=== PATIENT | female | born 1980 | race American Indian/Alaskan Native ===

== ENCOUNTER 2019-01-23 11:57 | Emergency (ER) | payer MEDICAID ==
--- NOTE | 2019-01-23 14:00 | Emergency Department Report ---
ED HPI - General Chief complaint: Vaginal Bleeding Stated complaint: 7WKS 3DAYS SPOTTING Time Seen by Provider: 01/23/19 13:49 Source: patient Mode of arrival: Ambulatory Limitations: No Limitations - History of Present Illness Initial comments: This is a 38-year-old female nontoxic, well nourished in appearance, no acute signs of distress presents to the ED with c/o of vaginal bleeding and pelvic cramping x1 day. Patient stated yesterday she noticed some spotting this morning x3 occasions and primarily only when she wipes after the restroom. Patient denies any abdominal pain. Patient denies any vaginal discharge or foul odor. Patient denies any nausea, vomiting, chest pain, shortness of breathe, fever, chills, headache, stiff neck, numbness, tingling. Patient denies any urinary symptoms. Patient denies any allergies or PMH. MD Complaint: vaginal bleeding -: This morning Location: pelvis Radiation: none Severity: mild Severity scale (0 -10): 3 Quality: cramping Consistency: constant Improves with: none Worsens with: none Associated symptoms: vaginal bleeding. denies: nausea/vomiting, vaginal discharge, abdominal pain, dysuria, headache, vision changes, malaise, dysparuenia, rash, seizure, shortness of breath, syncope, weakness Vaginal bleeding: light :: Yes Number of weeks : 7 Pre-ruthann care: none - Related Data Previous Rx's Medication Instructions Recorded Last Taken Type Acetaminophen [Acetaminophen TAB] 500 mg PO Q6HR PRN #20 tablet 01/23/19 Unknown Rx 21/Iron Fu/Folic Acid 1 each PO DAILY #30 tablet 01/23/19 Unknown Rx [ Complete Caplet] Allergies Allergy/AdvReac Type Severity Reaction Status Date / Time No Known Allergies Allergy Verified 09/23/15 16:15 ED Review of Systems ROS: Stated complaint: 7WKS 3DAYS SPOTTING Other details as noted in HPI Constitutional: denies: chills, fever Eyes: denies: eye pain, eye discharge, vision change ENT: denies: ear pain, throat pain Respiratory: denies: cough, shortness of breath, wheezing Cardiovascular: denies: chest pain, palpitations Endocrine: no symptoms reported Gastrointestinal: denies: abdominal pain, nausea, diarrhea Genitourinary: abnormal menses. denies: urgency, dysuria, discharge Musculoskeletal: denies: back pain, joint swelling, arthralgia Skin: denies: rash, lesions Neurological: denies: headache, weakness, paresthesias Psychiatric: denies: anxiety, depression Hematological/Lymphatic: denies: easy bleeding, easy bruising ED Past Medical Hx - Past Medical History Previous Medical History?: Yes Hx Hypertension: No Hx Congestive Heart Failure: No Hx Diabetes: Yes (GDM) Hx Deep Vein Thrombosis: No Hx Renal Disease: No Hx Sickle Cell Disease: No Hx Seizures: No Hx Asthma: Yes (uses albuterol inhaler) Hx COPD: No Hx HIV: No - Surgical History Past Surgical History?: Yes Hx Appendectomy: Yes Additional Surgical History: Surgery, tib/fib fx - Social History Smoking Status: Never Smoker Substance Use Type: None, Other - Medications Home Medications: Home Medications Medication Instructions Recorded Confirmed Last Taken Type Acetaminophen [Acetaminophen TAB] 500 mg PO Q6HR PRN #20 tablet 01/23/19 Unknown Rx 21/Iron Fu/Folic Acid 1 each PO DAILY #30 tablet 01/23/19 Unknown Rx [ Complete Caplet] ED Physical Exam - General Limitations: No Limitations General appearance: alert, in no apparent distress - Head Head exam: Present: atraumatic, normocephalic - Neck Neck exam: Present: normal inspection, full ROM. Absent: tenderness, meningismus, lymphadenopathy - Respiratory Respiratory exam: Present: normal lung sounds bilaterally. Absent: respiratory distress, wheezes, rales, rhonchi, stridor, chest wall tenderness, accessory muscle use, decreased breath sounds, prolonged expiratory - Cardiovascular Cardiovascular Exam: Present: regular rate, normal rhythm, normal heart sounds. Absent: bradycardia, tachycardia, irregular rhythm, systolic murmur, diastolic murmur, rubs, gallop - GI/Abdominal GI/Abdominal exam: Present: soft, normal bowel sounds. Absent: distended, tenderness, guarding, rebound, rigid, diminished bowel sounds - Extremities Exam Extremities exam: Present: normal inspection, full ROM - Back Exam Back exam: Present: normal inspection, full ROM. Absent: tenderness, CVA tenderness (R), CVA tenderness (L), muscle spasm, paraspinal tenderness, vertebral tenderness, rash noted - Neurological Exam Neurological exam: Present: alert, oriented X3 - Psychiatric Psychiatric exam: Present: normal affect, normal mood - Skin Skin exam: Present: warm, dry, intact, normal color. Absent: rash ED Course Vital Signs 01/23/19 12:05 Temperature 98.2 F Pulse Rate 82 Respiratory 16 Rate Blood Pressure 117/66 O2 Sat by Pulse 100 Oximetry - Reevaluation(s) Reevaluation #1: 01/23/19 14:11 Patient is speaking in full sentences with no signs of distress noted. ED Medical Decision Making - Lab Data Result diagrams: 01/23/19 14:27 - Medical Decision Making This is a 38-year-old female presents with threatened miscarriage. Patient is stable and was examined by me. Normal abdominal exam. US OB obtained and di ctated by the radiologist. Ua obtained. Quantative serum test obtained. Patient notified of the US report with no questions noted by the patient. Patient was instructed f/u with [facility] in 3-5 days. RH factor positive. Labs within normal limits. At time of discharge, the patient does not seem toxic or ill in appearance. No acute signs of distress noted. Patient agrees to discharge treatment plan of care. No further questions noted by the patient. Critical care attestation.: If time is entered above; I have spent that time in minutes in the direct care of this critically ill patient, excluding procedure time. ED Disposition Clinical Impression: Threatened miscarriage Disposition: DC-01 TO HOME OR SELFCARE Is pt being admited?: No Does the pt Need Aspirin: No Condition: Stable Instructions: Threatened Miscarriage (ED) Additional Instructions: Follow-up with a primary care doctor in 3-5 days or if symptoms worsen and continue return to emergency room as soon as possible. Prescriptions: Acetaminophen [Acetaminophen TAB] 500 mg PO Q6HR PRN #20 tablet PRN Reason: Pain, Moderate (4-6) 21/Iron Fu/Folic Acid [ Complete Caplet] 1 each PO DAILY #30 tablet Referrals: [facility] [Other] - 3-5 Days [facility] [Referring] - 3-5 Days KATERINA ADEN MD [Staff Physician] - 3-5 Days [facility] [Provider Group] - 3-5 Days Forms: Work/School Release Form(ED)
[2019-01-23 15:08] LABS: Hematocrit 40.8 % (30.3-42.9); Hemoglobin 13.2 gm/dl (10.1-14.3); Mean Corpuscular HGB Conc 32 % (30-34); Mean Corpuscular Volume 86 fl (79-97); Platelet Count 184 K/mm3 (140-440); Red Blood Count 4.74 M/mm3 (3.65-5.03); Red Cell Distribution Width 13.9 % (13.2-15.2)
[2019-01-23 15:46] LABS: Bilirubin,Urine NEG (Negative); Blood,Urine NEG (Negative); Color,Urine Yellow (Yellow); Mucus,Urine FEW /HPF; Protein,Urine <15 mg/dL mg/dL (Negative); Urobilinogen,Urine < 2.0 mg/dL (<2.0); WBC,Urine < 1.0 /HPF (0.0-6.0)
[2019-01-23 15:58] LABS: Band Neutrophils # (Manual) 0.1 K/mm3; Basophils % (Manual) 0 % (0.0-1.8); Eosinophils % (Manual) 0 % (0.0-4.3); Total Cells Counted 100
--- NOTE | 2019-01-23 17:22 | Ultrasound Report ---
PROCEDURE: US OB TRANSVAGINAL HISTORY: vaginal bleeding FINDINGS: Real-time ultrasound of the pelvis was performed by transabdominal and endovaginal techniqu e. There is an intrauterine gestation with average ultrasound age of 5 weeks and 5 days, with card iac activity at 90 bpm. The right ovary measures 2.7 x 1.3 x 2.1 cm and contains an echogenic region, likely hemorrhagic cyst or collapsed cyst, measuring 1.4 x 1.0 x 1.4 cm. The left ovary measures 2.7 x 2.0 x 2.5 cm and contains a echogenic lesion, likely luteal cyst, measuring 1.7 x 1.4 x 2.0 cm. There is physiologic simple appearing free fluid in the cul-de-sac. IMPRESSION: Live intrauterine gestation at 5 weeks and 5 days gestational age This document is electronically signed by César Richter MD., January 23 2019 05:20:12 PM ET
--- NOTE | 2019-01-23 17:22 | Ultrasound Report ---
PROCEDURE: US OB <= 14 WEEKS FETUS HISTORY: vaginal bleeding FINDINGS: Real-time ultrasound of the pelvis was performed by transabdominal and endovaginal techniqu e. There is an intrauterine gestation with average ultrasound age of 5 weeks and 5 days, with card iac activity at 90 bpm. The right ovary measures 2.7 x 1.3 x 2.1 cm and contains an echogenic region, likely hemorrhagic cyst or collapsed cyst, measuring 1.4 x 1.0 x 1.4 cm. The left ovary measures 2.7 x 2.0 x 2.5 cm and contains a echogenic lesion, likely luteal cyst, measuring 1.7 x 1.4 x 2.0 cm. There is physiologic simple appearing free fluid in the cul-de-sac. IMPRESSION: Live intrauterine gestation at 5 weeks and 5 days gestational age This document is electronically signed by César Richter MD., January 23 2019 05:20:28 PM ET
[2019-01-23 18:13] VITALS: BP 106/62
== END 2019-01-23 18:22 | disposition home or self-care (01) ==
LOC: ED 11:57
DX: O20.0 Threatened abortion (principal); O99.511 Diseases of the respiratory system complicating pregnancy, first trimester; J45.909 Unspecified asthma, uncomplicated; Z90.49 Acquired absence of other specified parts of digestive tract; Z3A.01 Less than 8 weeks gestation of pregnancy
CPT/HCPCS: 36415; 76801; 76817; 81001; 84702; 85007; 85025; 86850; 86900; 86901; 99284

== ENCOUNTER 2019-09-14 21:38 | Inpatient (IN) | payer MEDICAID ==
--- NOTE | 2019-09-14 22:37 | Emergency Department Report ---
ED Chest Pain HPI - General Chief Complaint: Chest Pain Stated Complaint: CHEST PAIN Time Seen by Provider: 09/14/19 22:18 Source: EMS Mode of arrival: Stretcher Limitations: No Limitations - History of Present Illness Initial Comments: 38-year-old female with past medical history of asthma and gestational diabetes presents to the hospital complains of chest pain and unintentional medication overdose. Patient states she's had sternal sharp chest pain that is intermittent since this a.m. Pain worsened movement and palpation. She denies shortness of breath, cough, fever, calf tenderness, leg edema, history of PE/DVT, recent travel, recent surgery, or control use. Also denies cardiac risk factors include hypertension, current diabetes, family history of CAD, or tobacco use. Between 5 PM and 6:45 PM patient to 6 Tylenol PM tablets to help with the pain. Patient is tachycardic. She has had 1-2 episodes of vomiting. She denies continued nausea. She is drowsy at times it causes her sister her cousin but is otherwise oriented 3. 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 between 2pm and 6pm Severity scale (0 -10): 5 - Related Data Home Medications Medication Instructions Recorded Confirmed Last Taken No Known Home Medications [No 09/15/19 09/15/19 Unknown Reported Home Medications] Allergies Allergy/AdvReac Type Severity Reaction Status Date / Time No Known Allergies Allergy Verified 09/23/15 16:15 Heart Score - HEART Score History: Slightly suspicious EKG: Normal Age: < 45 Risk factors: No known risk factors Troponin: < normal limit HEART Score: 0 ED Review of Systems ROS: Stated complaint: CHEST PAIN Other details as noted in HPI Comment: All other systems reviewed and negative ED Past Medical Hx - Past Medical History Previous Medical History?: Yes Hx Hypertension: No Hx Congestive Heart Failure: No Hx Diabetes: Yes (GDM) Hx Deep Vein Thrombosis: No Hx Renal Disease: No Hx Sickle Cell Disease: No Hx Seizures: No Hx Asthma: Yes (uses albuterol inhaler) Hx COPD: No Hx HIV: No - Surgical History Hx Appendectomy: Yes Additional Surgical History: Surgery, tib/fib fx - Social History Smoking Status: Never Smoker Substance Use Type: Alcohol - Medications Home Medications: Home Medications Medication Instructions Recorded Confirmed Last Taken Type No Known Home Medications [No 09/15/19 09/15/19 Unknown History Reported Home Medications] ED Physical Exam - General Limitations: No Limitations - Other Other exam information: General: No acute distress Head: Atraumatic Eyes: normal appearance ENT: Moist mucous membranes Neck: Normal appearance, no midline tenderness Chest: Clear to auscultation bilaterally, reproducible lower sternal chest tenderness CV: Regular rate and rhythm Abdomen: Soft, normal bowel sounds, nontender, nondistended, no rebound or guarding Back: Normal inspection Extremity: Normal inspection infection, full range of motion Neuro: drowsy O x 3, no facial asymmetry, speech clear, no gross motor sensory deficit Psych: Appropriate behavior Skin: No rash ED Course Vital Signs 09/14/19 09/14/19 09/14/19 22:20 22:30 23:00 Temperature 98.3 F Pulse Rate 91 H 89 84 Respiratory 19 11 L 18 Rate Blood Pressure 134/72 128/75 126/70 Blood Pressure 134/72 [Left] O2 Sat by Pulse 100 100 100 Oximetry 09/14/19 09/15/19 09/15/19 23:30 00:00 00:11 Temperature Pulse Rate 82 88 86 Respiratory 19 26 H 23 Rate Blood Pressure 117/72 136/74 136/74 Blood Pressure [Left] O2 Sat by Pulse 100 100 98 Oximetry 09/15/19 00:30 Temperature Pulse Rate 90 Respiratory 22 Rate Blood Pressure 125/70 Blood Pressure [Left] O2 Sat by Pulse 100 Oximetry - Consultations Consultation #1: 09/14/19 23:28 recontacted poison control ([place]) regarding elevated Tylenol level That amount of medication ingested and time changes with each questioning so exact amount and time of ingestion is unknown. risk of Benadryl OD: torsades, ventricular dysrhythmias with qtc > 500 recommended to optimize mag, k, ca with tylenol OD liver dysfunction takes 24 hours due unreliable ingestion time and amount NAC IV is recommended rec 1hr, 4hr, and 16 hr NAC IV protocol 2 hours till completion of 16 hour infusion rec redrawal of tylenol (undetectable), LFTs should be less than 100, and INR should left the 1.5. If any of the repeat labs values are abnormal then the NAC drip will need to be continued for another 16 hour. JEAN MARIE score - Jean Marie Score Age > 65: (0) No Aspirin use within the Past 7 Days: (0) No 3 or more CAD Risk Factors: (0) No 2 or more Angina events in past 24 hrs: (0) No Known CAD with more than 50% Stenosis: (0) No Elevated Cardiac Markers: (0) No ST Deviation Greater than 0.5mm: (0) No JEAN MARIE Score: 0 ED Medical Decision Making - Lab Data Result diagrams: 09/14/19 22:38 09/14/19 22:38 Lab Results 09/14/19 09/14/19 09/14/19 Range/Units 22:38 22:38 22:38 WBC 6.5 (4.5-11.0) K/mm3 RBC 4.27 (3.65-5.03) M/mm3 Hgb 11.9 (10.1-14.3) gm/dl Hct 36.6 (30.3-42.9) % MCV 86 (79-97) fl MCH 28 (28-32) pg MCHC 33 (30-34) % RDW 13.8 (13.2-15.2) % Plt Count 187 (140-440) K/mm3 Lymph % (Auto) 25.5 (13.4-35.0) % Turner % (Auto) 9.8 H (0.0-7.3) % Eos % (Auto) 0.2 (0.0-4.3) % Baso % (Auto) 0.3 (0.0-1.8) % Lymph # 1.7 (1.2-5.4) K/mm3 Turner # 0.6 (0.0-0.8) K/mm3 Eos # 0.0 (0.0-0.4) K/mm3 Baso # 0.0 (0.0-0.1) K/mm3 Seg Neutrophils % 64.2 (40.0-70.0) % Seg Neutrophils # 4.2 (1.8-7.7) K/mm3 PT 14.3 (12.2-14.9) Sec. INR 1.10 (0.87-1.13) APTT 27.3 (24.2-36.6) Sec. Sodium 137 (137-145) mmol/L Potassium 3.4 L (3.6-5.0) mmol/L Chloride 103.1 (98-107) mmol/L Carbon Dioxide 21 L (22-30) mmol/L Anion Gap 16 mmol/L BUN 9 (7-17) mg/dL Creatinine 0.5 L (0.7-1.2) mg/dL Estimated GFR > 60 ml/min BUN/Creatinine Ratio 18 % Glucose 177 H (65-100) mg/dL Calcium 9.2 (8.4-10.2) mg/dL Magnesium (1.7-2.3) mg/dL Total Bilirubin 0.50 (0.1-1.2) mg/dL AST 12 (5-40) units/L ALT 10 (7-56) units/L Alkaline Phosphatase 72 (35-129) units/L Troponin T < 0.010 (0.00-0.029) ng/mL Total Protein 7.3 (6.3-8.2) g/dL Albumin 4.0 (3.9-5) g/dL Albumin/Globulin Ratio 1.2 % HCG, Qual (Negative) Salicylates (2.8-20.0) mg/dL Acetaminophen (10.0-30.0) ug/mL Plasma/Serum Alcohol (0-0.07) % 09/14/19 09/14/19 09/14/19 Range/Units 22:38 22:38 22:38 WBC (4.5-11.0) K/mm3 RBC (3.65-5.03) M/mm3 Hgb (10.1-14.3) gm/dl Hct (30.3-42.9) % MCV (79-97) fl MCH (28-32) pg MCHC (30-34) % RDW (13.2-15.2) % Plt Count (140-440) K/mm3 Lymph % (Auto) (13.4-35.0) % Turner % (Auto) (0.0-7.3) % Eos % (Auto) (0.0-4.3) % Baso % (Auto) (0.0-1.8) % Lymph # (1.2-5.4) K/mm3 Turner # (0.0-0.8) K/mm3 Eos # (0.0-0.4) K/mm3 Baso # (0.0-0.1) K/mm3 Seg Neutrophils % (40.0-70.0) % Seg Neutrophils # (1.8-7.7) K/mm3 PT (12.2-14.9) Sec. INR (0.87-1.13) APTT (24.2-36.6) Sec. Sodium (137-145) mmol/L Potassium (3.6-5.0) mmol/L Chloride (98-107) mmol/L Carbon Dioxide (22-30) mmol/L Anion Gap mmol/L BUN (7-17) mg/dL Creatinine (0.7-1.2) mg/dL Estimated GFR ml/min BUN/Creatinine Ratio % Glucose (65-100) mg/dL Calcium (8.4-10.2) mg/dL Magnesium (1.7-2.3) mg/dL Total Bilirubin (0.1-1.2) mg/dL AST (5-40) units/L ALT (7-56) units/L Alkaline Phosphatase (35-129) units/L Troponin T (0.00-0.029) ng/mL Total Protein (6.3-8.2) g/dL Albumin (3.9-5) g/dL Albumin/Globulin Ratio % HCG, Qual (Negative) Salicylates < 0.3 L (2.8-20.0) mg/dL Acetaminophen 108.5 H (10.0-30.0) ug/mL Plasma/Serum Alcohol < 0.01 (0-0.07) % 09/14/19 09/14/19 Range/Units 22:38 Unknown WBC (4.5-11.0) K/mm3 RBC (3.65-5.03) M/mm3 Hgb (10.1-14.3) gm/dl Hct (30.3-42.9) % MCV (79-97) fl MCH (28-32) pg MCHC (30-34) % RDW (13.2-15.2) % Plt Count (140-440) K/mm3 Lymph % (Auto) (13.4-35.0) % Turner % (Auto) (0.0-7.3) % Eos % (Auto) (0.0-4.3) % Baso % (Auto) (0.0-1.8) % Lymph # (1.2-5.4) K/mm3 Turner # (0.0-0.8) K/mm3 Eos # (0.0-0.4) K/mm3 Baso # (0.0-0.1) K/mm3 Seg Neutrophils % (40.0-70.0) % Seg Neutrophils # (1.8-7.7) K/mm3 PT (12.2-14.9) Sec. INR (0.87-1.13) APTT (24.2-36.6) Sec. Sodium (137-145) mmol/L Potassium (3.6-5.0) mmol/L Chloride (98-107) mmol/L Carbon Dioxide (22-30) mmol/L Anion Gap mmol/L BUN (7-17) mg/dL Creatinine (0.7-1.2) mg/dL Estimated GFR ml/min BUN/Creatinine Ratio % Glucose (65-100) mg/dL Calcium (8.4-10.2) mg/dL Magnesium 1.60 L (1.7-2.3) mg/dL Total Bilirubin (0.1-1.2) mg/dL AST (5-40) units/L ALT (7-56) units/L Alkaline Phosphatase (35-129) units/L Troponin T (0.00-0.029) ng/mL Total Protein (6.3-8.2) g/dL Albumin (3.9-5) g/dL Albumin/Globulin Ratio % HCG, Qual Negative (Negative) Salicylates (2.8-20.0) mg/dL Acetaminophen (10.0-30.0) ug/mL Plasma/Serum Alcohol (0-0.07) % - EKG Data -: EKG Interpreted by [facility] EKG shows normal: sinus rhythm, intervals (qtc 508), ST-T waves (no stemi) Rate: tachycardia (105) - EKG Data 09/15/19 01:07 repeat ekg shows improved tachycardia and qtc - Radiology Data Radiology results: report reviewed (cxr: naf) - Medical Decision Making pt here in the ED status post unintentional overdose due to continued chest miguel n. Sternal pain is reproducible on exam without cardiac risk factors an EKG does not show ischemic findings. Patient required admission to the hospital for in a infusion due to possible Tylenol overdose. IV potassium ordered for hypokalemia and IV mag for Hypomagnesemia. Hospitalist informed for admission - Differential Diagnosis overdose intentional vs unintentional, mi, costochondritis Critical Care Time: No Critical care attestation.: If time is entered above; I have spent that time in minutes in the direct care of this critically ill patient, excluding procedure time. ED Disposition Clinical Impression: Costochondral chest pain, Overdose by acetaminophen, Anticholinergic drug overdose, Hypokalemia, Hypomagnesemia Disposition: OP ADMIT IP TO THIS HOSP Is pt being admited?: Yes Condition: Stable Time of Disposition: 23:53 (Dr Long/hosp)
[2019-09-14 22:52] LABS: Basophils % (Auto) 0.3 % (0.0-1.8); Eosinophils % (Auto) 0.2 % (0.0-4.3); Hematocrit 36.6 % (30.3-42.9); Hemoglobin 11.9 gm/dl (10.1-14.3); Lymphocytes # (Auto) 1.7 K/mm3 (1.2-5.4); Lymphocytes % (Auto) 25.5 % (13.4-35.0); Mean Corpuscular HGB Conc 33 % (30-34); Mean Corpuscular Volume 86 fl (79-97); Monocytes # (Auto) 0.6 K/mm3 (0.0-0.8); Monocytes % (Auto) 9.8 % (0.0-7.3); Platelet Count 187 K/mm3 (140-440); Red Blood Count 4.27 M/mm3 (3.65-5.03); Red Cell Distribution Width 13.8 % (13.2-15.2)
[2019-09-14 23:04] LABS: INR 1.1 (0.87-1.13)
[2019-09-14 23:06] LABS: Partial Thromboplastin Time 27.3 Sec. (24.2-36.6)
[2019-09-14 23:13] LABS: Alanine Aminotransferase 10 units/L (7-56); BUN/Creatinine Ratio 18; Blood Urea Nitrogen 9 mg/dL (7-17); Calcium 9.2 mg/dL (8.4-10.2); Hemolysis Index 7
--- NOTE | 2019-09-14 23:42 | XRay Report ---
CHEST 1 VIEW INDICATION / CLINICAL INFORMATION: Chest Pain. COMPARISON: 07/16/2010 FINDINGS: SUPPORT DEVICES: None. HEART / MEDIASTINUM: No significant abnormality. LUNGS / PLEURA: No significant pulmonary or pleural abnormality. No pneumothorax. ADDITIONAL FINDINGS: No significant additional findings. IMPRESSION: 1. No significant change Signer Name: Navdeep Bay MD Signed: 09/14/2019 11:38 PM Workstation Name: [id number]
--- NOTE | 2019-09-14 23:55 | History and Physical Report ---
History of Present Illness History of present illness: 38 -year-old woman with history of asthma comes emergency room for evaluation. Patient said today she was having pain in the epigastric area which she describes a sharp pain, intermittent over 30 minutes, intensity level X, no radiation, cannot identify exacerbating factors. She stated that she took a total of 10 pills of Tylenol for her pain. Her cousin saw her and said that she looked out-of-it and brought her to the emergency room for evaluation. Admits to nausea vomiting 1, no shortness of breath, diaphoresis, palpitation Review Of Systems: Constitutional: no weight loss, fever, chills Ears, eyes, nose, mouth and throat: no nasal congestion, no nasal discharge, no sinus pressure, blurry vision, diplopia Neck: No neck pain or rigidity. Cardiovascular: No palpitations, chest pain Respiratory: No shortness of breath, cough Gastrointestinal: No hematochezia, abdominal pain Genitourinary : no dysuria, frequency Musculoskeletal: no muscle ache , joint pain Integumentary: no rash, no pruritis Neurological: no parathesias, focal weakness Endocrine: no cold or heat intolerance, no polyuria or polydipsia Hematologic/Lymphatic: no easy bruising, no easy bleeding, no gland swelling Allergic/Immunologic: no urticaria, no angioedema. PAST MEDICAL HISTORY: asthma PAST SURGICAL HISTORY:None SOCIAL HISTORY: Denies alcohol, tobacco, drugs FAMILY HISTORY: Hypertension Medications and Allergies Allergies Allergy/AdvReac Type Severity Reaction Status Date / Time No Known Allergies Allergy Verified 09/23/15 16:15 Home Medications Medication Instructions Recorded Confirmed Last Taken Type No Known Home Medications [No 09/15/19 09/15/19 Unknown History Reported Home Medications] Active Meds: Active Medications Potassium Chloride (Kcl 10meq/100ml) 10 meq in 100 mls @ 100 mls/hr IV Q1H HOLLAND Stop: 09/15/19 01:44 Exam - Physical Exam Narrative exam: Gen. appearance: Patient lying in bed, no apparent distress HEENT: Normocephalic, atraumatic, pupils equally round and reactive to light, extraocular movement intact, and no sclericterus,. No JVD or thyromegaly or nodule,neck supple, no carotid bruit ,mucous membranes moist, no exudate or erythema Heart: S1, S2, regular rate and rhythm Lungs: Clear bilaterally, breathing comfortable Abdomen: Positive bowel sounds, nontender, nondistended, no organomegaly Extremity: no edema, cyanosis, clubbing Skin: No rash, nodules, warm, dry Neuro: speech is fluent, moves extremities, sensory intact - Constitutional Vitals: Temp Pulse Resp BP Pulse Ox 98.3 F 91 H 19 134/72 100 09/14/19 22:20 09/14/19 22:20 09/14/19 22:20 09/14/19 22:20 09/14/19 22:20 Results - Labs CBC & Chem 7: 09/14/19 22:38 09/14/19 22:38 Labs: Abnormal lab results 09/14/19 09/14/19 09/14/19 Range/Units 22:38 22:38 22:38 Weakley % (Auto) 9.8 H (0.0-7.3) % Potassium 3.4 L (3.6-5.0) mmol/L Carbon Dioxide 21 L (22-30) mmol/L Creatinine 0.5 L (0.7-1.2) mg/dL Glucose 177 H (65-100) mg/dL Magnesium (1.7-2.3) mg/dL Salicylates < 0.3 L (2.8-20.0) mg/dL Acetaminophen (10.0-30.0) ug/mL 09/14/19 09/14/19 Range/Units 22:38 Unknown Weakley % (Auto) (0.0-7.3) % Potassium (3.6-5.0) mmol/L Carbon Dioxide (22-30) mmol/L Creatinine (0.7-1.2) mg/dL Glucose (65-100) mg/dL Magnesium 1.60 L (1.7-2.3) mg/dL Salicylates (2.8-20.0) mg/dL Acetaminophen 108.5 H (10.0-30.0) ug/mL - Imaging and Cardiology Chest x-ray: report reviewed Assessment and Plan Assessment Unintentional Tylenol overdose Continue Mucomyst, IV fluids Check serial LFTs, PT/INR Follow-up poison control recommendations outlining the ER physician's note Consult critical care Chest pain Check cardiac enzymes, d-dimer Addendum D-dimer elevated, check CT chest
[2019-09-14] MEDS ORDERED: MAGNESIUM SULFATE 2 GM/50 ML BAG IV ONE (23:56)
[2019-09-15] MEDS ORDERED: ACETAMINOPHEN 325 MG TAB PO PRN (00:43)
[2019-09-15] MEDS ORDERED: ONDANSETRON 4 MG/2 ML INJ IV PRN (00:43)
[2019-09-15] MEDS: POTASSIUM CHLORIDE 10 MEQ 10 MEQ/100 ML BAG IV SCH ×2 (00:45→02:29)
[2019-09-15] MEDS ORDERED: DEXTROSE 5% IV ONE ×3 (01:00→06:00)
[2019-09-15] MEDS ORDERED: WATER IV ONE ×3 (01:00→06:00)
[2019-09-15] MEDS ORDERED: ACETADOTE IV ONE ×3 (01:00→06:00)
[2019-09-15 01:22] LABS: INR 1.05 (0.87-1.13)
[2019-09-15 01:23] LABS: Partial Thromboplastin Time 27.9 Sec. (24.2-36.6)
[2019-09-15 01:35] LABS: Creatine Kinase MB < 1.0 ng/mL (0.0-4.0)
[2019-09-15 01:36] LABS: Alanine Aminotransferase 11 units/L (7-56); Albumin 4.5 g/dL (3.9-5)
[2019-09-15 01:39] LABS: Bilirubin,Direct < 0.2 mg/dL (0-0.2)
[2019-09-15] MEDS: SODIUM CHLORIDE 0.9% 1000 ML 1,000 ML IV SCH ×2 (02:05→10:30)
[2019-09-15 04:52] LABS: Amphetamine Screen,Urine PRESUMPTIVE NEGATIVE; Benzodiazepines Screen,Urine PRESUMPTIVE NEGATIVE; Cannabinoid Screen,Urine PRESUMPTIVE NEGATIVE; Cocaine Screen,Urine PRESUMPTIVE NEGATIVE; Methadone Screen,Urine PRESUMPTIVE NEGATIVE; Opiate Screen,Urine PRESUMPTIVE NEGATIVE
[2019-09-15 05:35] LABS: Basophils % (Auto) 0.1 % (0.0-1.8); Eosinophils % (Auto) 0.1 % (0.0-4.3); Hematocrit 36.9 % (30.3-42.9); Hemoglobin 12.2 gm/dl (10.1-14.3); Lymphocytes # (Auto) 1.1 K/mm3 (1.2-5.4); Lymphocytes % (Auto) 20.4 % (13.4-35.0); Mean Corpuscular HGB Conc 33 % (30-34); Mean Corpuscular Volume 86 fl (79-97); Monocytes # (Auto) 0.7 K/mm3 (0.0-0.8); Monocytes % (Auto) 13.5 % (0.0-7.3); Platelet Count 174 K/mm3 (140-440); Red Cell Distribution Width 13.8 % (13.2-15.2)
[2019-09-15 05:43] LABS: INR 1.15 (0.87-1.13)
[2019-09-15 05:44] LABS: Partial Thromboplastin Time 29.5 Sec. (24.2-36.6)
[2019-09-15 06:00] LABS: BUN/Creatinine Ratio 12; Blood Urea Nitrogen 7 mg/dL (7-17); Calcium 8.4 mg/dL (8.4-10.2); Hemolysis Index 5
[2019-09-15 06:02] LABS: Alanine Aminotransferase 10 units/L (7-56); Albumin 4.1 g/dL (3.9-5)
[2019-09-15 06:05] LABS: Bilirubin,Direct < 0.2 mg/dL (0-0.2)
--- NOTE | 2019-09-15 07:09 | Cat Scan Report ---
CTA chest with contrast INDICATION : S.O.B., POSSIBLE P.E.. TECHNIQUE: Axial imaging performed through the chest, with contrast bolus timing set to maximize opa cification of the pulmonary arteries. 3-plane MIP reformatted images were obtained. All CT scans at this location are performed using CT dose reduction for ALARA by means of automated exposure control. 100 mL of intravenous contrast administered. COMPARISON: None FINDINGS: Bolus: Contrast bolus timing is adequate. PTE: No filling defect is present to suggest PTE. Mediastinum: Heart and great vessels appear normal. No pathologic mediastinal adenopathy. Lungs: Lungs are clear. Upper abdomen: Limited imaging of the upper abdomen shows nothing acute. Bones: Degenerative changes in the spine with nothing acute. IMPRESSION: Negative for PTE. Clear lungs. Signer Name: Lawson Cordero MD Signed: 09/15/2019 7:04 AM Workstation Name: [id number]
[2019-09-15 08:02] LABS: INR 1.14 (0.87-1.13); Partial Thromboplastin Time 29.1 Sec. (24.2-36.6)
[2019-09-15 08:10] LABS: Alanine Aminotransferase 10 units/L (7-56)
[2019-09-15 08:30] LABS: Bilirubin,Direct < 0.2 mg/dL (0-0.2); Creatine Kinase MB < 1.0 ng/mL (0.0-4.0)
[2019-09-15] MEDS ORDERED: ENOXAPARIN 40 MG/0.4 ML INJ SUB-Q SCH (10:00)
[2019-09-15] MEDS ORDERED: NITROGLYCERIN 0.4 MG TAB SUBL SL PRN (10:35)
[2019-09-15] MEDS ORDERED: DEXTROSE 50% IN WATER (25GM) 50 ML SYRINGE IV PRN (10:37)
[2019-09-15] MEDS ORDERED: PANTOPRAZOLE 40 MG INJ IV SCH (11:00)
[2019-09-15] MEDS ORDERED: ASPIRIN 81 MG TAB CHEW PO SCH (11:00)
--- NOTE | 2019-09-15 11:15 | Consultation ---
History of Present Illness - Reason for Consult Consult date: 09/15/19 Tylenol Toxicity Requesting physician: JAIRO LEE - History of Present Illness 38 y/o female who was having chest and epigastric pain, took between 6-8 Tylenol PM's. Came to the Ed and was found to be somewhat lethargic and Tachycardic. This am awake and alert. Tachycardia has resolved. She was given NAC therapy. Past History Past Medical History: other (asthma and gestational diabetes) Past Surgical History: No surgical history Social history: no significant social history Medications and Allergies Allergies Allergy/AdvReac Type Severity Reaction Status Date / Time No Known Allergies Allergy Verified 09/23/15 16:15 Home Medications Medication Instructions Recorded Confirmed Last Taken Type No Known Home Medications [No 09/15/19 09/15/19 Unknown History Reported Home Medications] Active Meds: Active Medications Aspirin (Baby Aspirin) 81 mg PO QDAY [facility] Dextrose (D50w (25gm) Syringe) 50 ml IV Q30MIN PRN; Protocol PRN Reason: Hypoglycemia Enoxaparin Sodium (Enoxaparin) 40 mg SUB-Q QDAY [facility] Acetylcysteine 5,400 mg/ (Dextrose) 1,027 mls @ 64.188 mls/hr IV DIRECT ONE Stop: 09/15/19 21:59 Sodium Chloride (Nacl 0.9% 1000 Ml) 1,000 mls @ 125 mls/hr IV DIRECT [facility] Last Admin: 09/15/19 10:30 Dose: 125 mls/hr Documented by: Insulin Human Lispro (Humalog) 0 unit SUB-Q ACHS [facility]; Protocol Nitroglycerin (Nitrostat) 0.4 mg SL .Q5MIN PRN PRN Reason: Chest Pain Ondansetron HCl (Zofran) 4 mg IV Q8H PRN PRN Reason: Nausea And Vomiting Last Admin: 09/15/19 02:48 Dose: 4 mg Documented by: Pantoprazole Sodium (Protonix) 40 mg IV BID [facility] Pravastatin Sodium (Pravachol) 80 mg PO QHS [facility] Sodium Chloride (Sodium Chloride Flush Syringe 10 Ml) 10 ml IV BID [facility] Sodium Chloride (Sodium Chloride Flush Syringe 10 Ml) 10 ml IV PRN PRN PRN Reason: LINE FLUSH Review of Systems All systems: negative Exam - Constitutional Vitals: Temp Pulse Resp BP Pulse Ox 98.2 F 81 21 120/67 99 09/15/19 08:04 09/15/19 04:00 09/15/19 01:21 09/15/19 01:21 09/15/19 08:08 General appearance: Present: no acute distress, well-nourished - EENT Eyes: Present: PERRL, EOM intact ENT: hearing intact, clear oral mucosa, dentition normal - Neck Neck: Present: supple, normal ROM - Respiratory Respiratory effort: normal Respiratory: bilateral: CTA - Cardiovascular Rhythm: regular Heart Sounds: Present: S1 & S2 - Extremities Extremities: no ischemia, No edema, normal temperature, normal color - Abdominal General gastrointestinal: Present: soft, non-tender, normal bowel sounds Female genitourinary: Present: deferred - Rectal Rectal Exam: deferred - Integumentary Integumentary: Present: clear, warm, dry Results - Labs CBC & Chem 7: 09/15/19 04:57 09/15/19 04:57 Labs: Abnormal lab results 09/14/19 09/14/19 09/14/19 Range/Units 22:38 22:38 22:38 [place] % (Auto) 9.8 H (0.0-7.3) % Lymph # (1.2-5.4) K/mm3 INR (0.87-1.13) D-Dimer (0-234) ng/mlDDU Sodium (137-145) mmol/L Potassium 3.4 L (3.6-5.0) mmol/L Carbon Dioxide 21 L (22-30) mmol/L Creatinine 0.5 L (0.7-1.2) mg/dL Glucose 177 H (65-100) mg/dL Phosphorus (2.5-4.5) mg/dL Magnesium (1.7-2.3) mg/dL Salicylates < 0.3 L (2.8-20.0) mg/dL Acetaminophen (10.0-30.0) ug/mL 09/14/19 09/14/19 09/15/19 Range/Units 22:38 Unknown 00:54 [place] % (Auto) (0.0-7.3) % Lymph # (1.2-5.4) K/mm3 INR (0.87-1.13) D-Dimer 817.67 H (0-234) ng/mlDDU Sodium (137-145) mmol/L Potassium (3.6-5.0) mmol/L Carbon Dioxide (22-30) mmol/L Creatinine (0.7-1.2) mg/dL Glucose (65-100) mg/dL Phosphorus (2.5-4.5) mg/dL Magnesium 1.60 L (1.7-2.3) mg/dL Salicylates (2.8-20.0) mg/dL Acetaminophen 108.5 H (10.0-30.0) ug/mL 09/15/19 09/15/19 09/15/19 Range/Units 00:54 04:57 04:57 [place] % (Auto) 13.5 H (0.0-7.3) % Lymph # 1.1 L (1.2-5.4) K/mm3 INR (0.87-1.13) D-Dimer (0-234) ng/mlDDU Sodium 136 L (137-145) mmol/L Potassium (3.6-5.0) mmol/L Carbon Dioxide 18 L (22-30) mmol/L Creatinine 0.6 L (0.7-1.2) mg/dL Glucose 235 H (65-100) mg/dL Phosphorus 2.10 L (2.5-4.5) mg/dL Magnesium (1.7-2.3) mg/dL Salicylates (2.8-20.0) mg/dL Acetaminophen 71.8 H (10.0-30.0) ug/mL 09/15/19 09/15/19 09/15/19 Range/Units 04:57 07:40 07:40 [place] % (Auto) (0.0-7.3) % Lymph # (1.2-5.4) K/mm3 INR 1.15 H 1.14 H (0.87-1.13) D-Dimer (0-234) ng/mlDDU Sodium (137-145) mmol/L Potassium (3.6-5.0) mmol/L Carbon Dioxide (22-30) mmol/L Creatinine (0.7-1.2) mg/dL Glucose (65-100) mg/dL Phosphorus (2.5-4.5) mg/dL Magnesium (1.7-2.3) mg/dL Salicylates (2.8-20.0) mg/dL Acetaminophen 8.1 L (10.0-30.0) ug/mL - Imaging and Cardiology Chest x-ray: image reviewed CT scan - chest: image reviewed Assessment and Plan 38 y/o female with altered mental state and unintentional overdose of tylenol secondary to pain From a critical care standpoint stable. Has finished NAC therapy. Please transfer from ICU. Will sign off.
[2019-09-15] MEDS ORDERED: INSULIN LISPRO 100 UNIT/ML SUB-Q SCH (11:30)
[2019-09-15 12:39] VITALS: BP 132/74
--- NOTE | 2019-09-15 13:39 | Vascular Lab Report ---
DUPLEX DOPPLER LOWER EXTREMITY VEINS, BILATERAL INDICATION: dvt. TECHNIQUE: Duplex doppler imaging was performed through the veins of both lower extremities using venous denton fernando and other maneuvers. COMPARISON: None available. FINDINGS: Right Common femoral vein: Negative. Right Superficial femoral vein: Negative. Right Popliteal vein: Negative. Right Calf veins: Negative. Left Common femoral vein: Negative. Left Superficial femoral vein: Negative. Left Popliteal vein: Negative. Left Calf veins: Negative. Additional findings: None. IMPRESSION: Negative for DVT. Signer Name: Trey Peres MD Signed: 09/15/2019 1:34 PM Workstation Name: [id number]
--- NOTE | 2019-09-15 16:13 | Consultation ---
History of Present Illness Consult date: 09/15/19 Consult reason: chest pain History of present illness: 38-year old woman who is admitted with unintentional Tylenol overdose. Patient reports excessively taking tylenol for chest pain. Pain is located in the epigastric area and is reproducible with palpation. Cardiac isoenzymes are normal. Her ECG is benign, sinus rhythm. Chest CTA is negative for PE. Cardiac consultation has been requested. Past History Past Medical History: other (asthma and gestational diabetes) Past Surgical History: No surgical history Social history: no significant social history Medications and Allergies Allergies Allergy/AdvReac Type Severity Reaction Status Date / Time No Known Allergies Allergy Verified 09/23/15 16:15 Home Medications Medication Instructions Recorded Confirmed Last Taken Type No Known Home Medications [No 09/15/19 09/15/19 Unknown History Reported Home Medications] Active Meds: Active Medications Aspirin (Baby Aspirin) 81 mg PO QDAY [facility] Last Admin: 09/15/19 13:32 Dose: 81 mg Documented by: Dextrose (D50w (25gm) Syringe) 50 ml IV Q30MIN PRN; Protocol PRN Reason: Hypoglycemia Enoxaparin Sodium (Enoxaparin) 40 mg SUB-Q QDAY [facility] Last Admin: 09/15/19 10:00 Dose: Not Given Documented by: Acetylcysteine 5,400 mg/ (Dextrose) 1,027 mls @ 64.188 mls/hr IV DIRECT ONE Stop: 09/15/19 21:59 Sodium Chloride (Nacl 0.9% 1000 Ml) 1,000 mls @ 125 mls/hr IV DIRECT [facility] Last Admin: 09/15/19 10:30 Dose: 125 mls/hr Documented by: Insulin Human Lispro (Humalog) 0 unit SUB-Q ACHS [facility]; Protocol Last Admin: 09/15/19 11:27 Dose: Not Given Documented by: Nitroglycerin (Nitrostat) 0.4 mg SL .Q5MIN PRN PRN Reason: Chest Pain Last Admin: 09/15/19 12:38 Dose: 0.4 mg Documented by: Ondansetron HCl (Zofran) 4 mg IV Q8H PRN PRN Reason: Nausea And Vomiting Last Admin: 09/15/19 02:48 Dose: 4 mg Documented by: Pantoprazole Sodium (Protonix) 40 mg IV BID [facility] Last Admin: 09/15/19 13:32 Dose: 40 mg Documented by: Pravastatin Sodium (Pravachol) 80 mg PO QHS [facility] Sodium Chloride (Sodium Chloride Flush Syringe 10 Ml) 10 ml IV BID [facility] Last Admin: 09/15/19 13:32 Dose: 10 ml Documented by: Sodium Chloride (Sodium Chloride Flush Syringe 10 Ml) 10 ml IV PRN PRN PRN Reason: LINE FLUSH Physical Examination Vital Signs Temp Pulse Resp BP Pulse Ox 98.3 F 91 H 19 134/72 100 09/14/19 22:20 09/14/19 22:20 09/14/19 22:20 09/14/19 22:20 09/14/19 22:20 General appearance: no acute distress HEENT: Positive: PERRL Neck: Positive: trachea midline Cardiac: Positive: Reg Rate and Rhythm Lungs: Positive: Normal Breath Sounds Neuro: Positive: Grossly Intact Extremities: Absent: edema Results 09/15/19 04:57 09/15/19 04:57 Cardiac Enzymes 09/14/19 09/15/19 09/15/19 Range/Units 22:38 00:54 01:02 AST 12 12 (5-40) units/L CK-MB (CK-2) < 1.0 (0.0-4.0) ng/mL 09/15/19 09/15/19 09/15/19 Range/Units 04:57 07:40 07:40 AST 11 11 (5-40) units/L CK-MB (CK-2) < 1.0 (0.0-4.0) ng/mL Coagulation 09/14/19 09/15/19 09/15/19 Range/Units 22:38 00:54 04:57 PT 14.3 13.8 14.9 (12.2-14.9) Sec. INR 1.10 1.05 1.15 H (0.87-1.13) APTT 27.3 27.9 29.5 (24.2-36.6) Sec. 09/15/19 Range/Units 07:40 PT 14.8 (12.2-14.9) Sec. INR 1.14 H (0.87-1.13) APTT 29.1 (24.2-36.6) Sec. CBC 09/14/19 09/15/19 Range/Units 22:38 04:57 WBC 6.5 5.5 (4.5-11.0) K/mm3 RBC 4.27 4.30 (3.65-5.03) M/mm3 Hgb 11.9 12.2 (10.1-14.3) gm/dl Hct 36.6 36.9 (30.3-42.9) % Plt Count 187 174 (140-440) K/mm3 Lymph # 1.7 1.1 L (1.2-5.4) K/mm3 Daniels # 0.6 0.7 (0.0-0.8) K/mm3 Eos # 0.0 0.0 (0.0-0.4) K/mm3 Baso # 0.0 0.0 (0.0-0.1) K/mm3 Comprehensive Metabolic Panel 09/14/19 09/15/19 09/15/19 Range/Units 22:38 00:54 04:57 Sodium 137 136 L (137-145) mmol/L Potassium 3.4 L 3.8 (3.6-5.0) mmol/L Chloride 103.1 104.0 (98-107) mmol/L Carbon Dioxide 21 L 18 L (22-30) mmol/L BUN 9 7 (7-17) mg/dL Creatinine 0.5 L 0.6 L (0.7-1.2) mg/dL Glucose 177 H 235 H (65-100) mg/dL Calcium 9.2 8.4 (8.4-10.2) mg/dL Direct Bilirubin < 0.2 (0-0.2) mg/dL Indirect Bilirubin 0.4 mg/dL AST 12 12 (5-40) units/L ALT 10 11 (7-56) units/L Alkaline Phosphatase 72 75 (35-129) units/L Total Protein 7.3 7.3 (6.3-8.2) g/dL Albumin 4.0 4.5 (3.9-5) g/dL 09/15/19 09/15/19 Range/Units 04:57 07:40 Sodium (137-145) mmol/L Potassium (3.6-5.0) mmol/L Chloride (98-107) mmol/L Carbon Dioxide (22-30) mmol/L BUN (7-17) mg/dL Creatinine (0.7-1.2) mg/dL Glucose (65-100) mg/dL Calcium (8.4-10.2) mg/dL Direct Bilirubin < 0.2 < 0.2 (0-0.2) mg/dL Indirect Bilirubin 0.5 0.7 mg/dL AST 11 11 (5-40) units/L ALT 10 10 (7-56) units/L Alkaline Phosphatase 61 60 (35-129) units/L Total Protein 6.6 6.8 (6.3-8.2) g/dL Albumin 4.1 4.0 (3.9-5) g/dL Assessment and Plan Epigastric pain Unintentional overdose with tylenol Recommend: GI evaluation and workup of epigastric pain.
--- NOTE | 2019-09-15 16:26 | Discharge Summary ---
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 Patient said today she was having pain in the epigastric area which she describes a sharp pain, intermittent over 30 minutes, intensity level X, no radiation, cannot identify exacerbating factors. She stated that she took a total of 10 pills of Tylenol for her pain. Her cousin saw her and said that she looked out-of-it and brought her to the emergency room for evaluation. Admits to nausea vomiting 1, no shortness of breath, diaphoresis, palpitation cardiology recommend GI eval discussed with patient plan for outpatient she is tolerating diet no further pain Encephalopathy noted on admissims was better Liver enzymes were stable she denies suicidal ideation she denies depression PPI started toxic metabolic encephalopathy Unintentional Tylenol overdose Atypical chest pain secondary to vasomotor nephropathy Disposition: DC-01 TO HOME OR SELFCARE Time spent for discharge: 35 mins Core Measure Documentation - Palliative Care Palliative Care/ Comfort Measures: Not Applicable - Core Measures Any of the following diagnoses?: none Exam - Constitutional Vitals: Temp Pulse Resp BP Pulse Ox 98.2 F 69 21 132/74 99 09/15/19 08:04 09/15/19 12:38 09/15/19 01:21 09/15/19 12:38 09/15/19 08:08 General appearance: Present: no acute distress, well-nourished - EENT Eyes: Present: PERRL ENT: clear oral mucosa - Neck Neck: Present: supple, normal ROM - Respiratory Respiratory effort: normal Respiratory: bilateral: CTA - Cardiovascular Rhythm: regular Heart Sounds: Present: S1 & S2. Absent: systolic murmur, diastolic murmur - Extremities Extremities: no ischemia, pulses intact, pulses symmetrical, No edema, normal temperature, normal color, Full ROM Peripheral Pulses: within normal limits - Abdominal General gastrointestinal: Present: soft, non-tender, non-distended, normal bowel sounds - Integumentary Integumentary: Present: clear, warm, dry - Musculoskeletal Musculoskeletal: strength equal bilaterally - Psychiatric Psychiatric: appropriate mood/affect, intact judgment & insight, memory intact, cooperative - Neurologic Neurologic: CNII-XII intact, moves all extremities - Allied Health Allied health notes reviewed: nursing Plan Activity: advance as tolerated, fall precautions Diet: low fat Special Instructions: record daily BP diary Follow up with: MARYCRUZ MASON MD [Staff Physician] - 7 Days JACKIE IRVIN MD [Staff Physician] - 7 Days Prescriptions: Omeprazole 40 mg PO DAILY #30 capsule.
[2019-09-15] MEDS ORDERED: PRAVASTATIN 80 MG TAB PO SCH (22:00)
== END 2019-09-15 17:55 | disposition home or self-care (01) | DRG 917 ==
LOC: ED 21:38 → CC1 23:55
PROVIDERS: ADMIT Internal Medicine; ATTEND Internal Medicine
DX: T39.1X1A Poisoning by 4-Aminophenol derivatives, accidental (unintentional), initial encounter (principal); G92 Toxic encephalopathy; R07.89 Other chest pain; J45.909 Unspecified asthma, uncomplicated; E87.6 Hypokalemia; E83.42 Hypomagnesemia; T44.3X1A Poisoning by other parasympatholytics [anticholinergics and antimuscarinics] and spasmolytics, accidental (unintentional), initial encounter; Y92.89 Other specified places as the place of occurrence of the external cause; Z82.49 Family history of ischemic heart disease and other diseases of the circulatory system; Z90.49 Acquired absence of other specified parts of digestive tract; Z72.89 Other problems related to lifestyle
CPT/HCPCS: 36415; 71045; 71275; 80048; 80053; 80076; 80307; 80320; 82550; 82553; 82962; 83735; 84100; 84484; 84703; 85025; 85379; 85610; 85730; 93005; 93010; 93970; G0378; A9270-GY; C9113; G0480; J0132; J1650; J2405; J3475; J3480; J7030; J7060; J7070; Q9967

== ENCOUNTER 2020-02-23 18:37 | Emergency (ER) | payer MEDICAID ==
[2020-02-23 18:51] VITALS: BP 134/84
[2020-02-23 20:19] LABS: Bilirubin,Urine NEG (Negative); Blood,Urine NEG (Negative); Color,Urine Yellow (Yellow); Mucus,Urine FEW /HPF; Protein,Urine <15 mg/dL mg/dL (Negative)
[2020-02-23 20:29] LABS: HCG Qualitative,Urine Negative (Negative)
[2020-02-23] MEDS ORDERED: ACETAMINOPHEN W/CODEINE 300-30 MG TAB PO ONE (20:50)
[2020-02-23] MEDS ORDERED: IBUPROFEN 800 MG TAB PO ONE (20:58)
--- NOTE | 2020-02-23 21:07 | Emergency Department Report ---
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 denies fall or trauma. states, she awakened with 5/10 and spasm. She denies dysuria, frequency, urgency, or hematuria, no vaginal discharge, or hx of renal stones. There has been no fever or chills, no n/v no abd pain. Pain is exacerbated by movement, bending, and twisting. Symptoms are relieved by nothing tried. There has been no loss or decrease in bowel or bladder function. MD Complaint: back injury Onset/Timin -: days(s) Similar Symptoms Previously: No Place: work Radiation: buttocks Severity: moderate Severity scale (0 -10): 5 Quality: sharp, aching Consistency: constant Improves With: none Worsens With: movement Context: turning/twisting, bending Associated Symptoms: denies: weakness, numbness, difficulty walking, difficulty urinating, incontinence, fever/chills - Related Data Previous Rx's Medication Instructions Recorded Last Taken Type Omeprazole 40 mg PO DAILY #30 capsule. 09/15/19 Unknown Rx Cyclobenzaprine [Flexeril] 10 mg PO BID PRN #20 tablet 02/23/20 Unknown Rx Methyl Salicylate/Menthol [[place] 1 applicatio TP TID PRN #1 tube 02/23/20 Unknown Rx [facility] Active 16%-8% Gel] Naproxen 500 mg PO BID PRN #30 tablet 02/23/20 Unknown Rx Allergies Allergy/AdvReac Type Severity Reaction Status Date / Time No Known Allergies Allergy Verified 02/23/20 18:46 ED Review of Systems ROS: Stated complaint: LOWER BACK PAIN Other details as noted in HPI Constitutional: denies: chills, fever Eyes: denies: eye pain, eye discharge, vision change ENT: denies: ear pain, throat pain Respiratory: denies: cough, shortness of breath, wheezing Cardiovascular: denies: chest pain, palpitations Endocrine: no symptoms reported Gastrointestinal: denies: abdominal pain, nausea, vomiting, diarrhea Genitourinary: denies: urgency, dysuria, frequency, hematuria, discharge Musculoskeletal: back pain, myalgia. denies: joint swelling, arthralgia Skin: denies: rash, lesions Neurological: denies: headache, weakness, paresthesias Psychiatric: denies: anxiety, depression Hematological/Lymphatic: as per HPI ED Past Medical Hx - Past Medical History Hx Hypertension: No Hx Congestive Heart Failure: No Hx Diabetes: Yes (GDM) Hx Deep Vein Thrombosis: No Hx Renal Disease: No Hx Sickle Cell Disease: No Hx Seizures: No Hx Asthma: Yes (uses albuterol inhaler) Hx COPD: No Hx HIV: No - Surgical History Hx Appendectomy: Yes Additional Surgical History: Surgery, tib/fib fx - Social History Smoking Status: Never Smoker Substance Use Type: None - Medications Home Medications: Home Medications Medication Instructions Recorded Confirmed Last Taken Type Omeprazole 40 mg PO DAILY #30 capsule. 09/15/19 Unknown Rx Cyclobenzaprine [Flexeril] 10 mg PO BID PRN #20 tablet 02/23/20 Unknown Rx Methyl Salicylate/Menthol [[place] 1 applicatio TP TID PRN #1 tube 02/23/20 Unknown Rx [place] Active 16%-8% Gel] Naproxen 500 mg PO BID PRN #30 tablet 02/23/20 Unknown Rx ED Physical Exam - General Limitations: No Limitations General appearance: alert, in no apparent distress - Head Head exam: Present: atraumatic, normocephalic - Eye Eye exam: Present: normal appearance, EOMI Pupils: Present: normal accommodation - ENT ENT exam: Present: mucous membranes moist - Neck Neck exam: Present: normal inspection, full ROM. Absent: tenderness - Expanded Neck Exam Expanded Neck exam: Absent: tenderness, midline deformity, anterior neck swelling, thyroid mass, carotid bruit, tracheal deviation - Respiratory Respiratory exam: Present: normal lung sounds bilaterally. Absent: respiratory distress, wheezes, stridor, chest wall tenderness - Cardiovascular Cardiovascular Exam: Present: regular rate, normal heart sounds - GI/Abdominal GI/Abdominal exam: Present: soft, normal bowel sounds. Absent: distended, tenderness, bruit, hernia - Rectal Rectal exam: Present: deferred - Extremities Exam Extremities exam: Present: normal inspection, full ROM, normal capillary refill. Absent: tenderness - Back Exam Back exam: Present: normal inspection, full ROM, tenderness, muscle spasm, paraspinal tenderness. Absent: CVA tenderness (R), CVA tenderness (L), vertebral tenderness, rash noted - Expanded Back Exam Expanded Back exam: Absent: saddle anesthesia Back exam: Positive Straight Leg Raise: Right, Negative Straight Leg Raising: Left - Neurological Exam Neurological exam: Present: alert, oriented X3, CN II-XII intact, normal gait, reflexes normal. Absent: motor sensory deficit - Expanded Neurological Exam Expanded Patient oriented to: Present: person, place, time Speech: Present: fluid speech Motor strength exam: RUE: 5, LUE: 5, RLE: 5, LLE: 5 DTR: ankle (R): 2+, ankle (L): 2+ Best Eye Response ([place]): (4) open spontaneously Best Motor Response (Bobbi): (6) obeys commands Best Verbal Response (Bobbi): (5) oriented Bobbi Total: 15 - Psychiatric Psychiatric exam: Present: normal affect, normal mood - Skin Skin exam: Present: warm, dry, intact, normal color. Absent: rash ED Course Vital Signs 02/23/20 18:47 Temperature 99.2 F Pulse Rate 77 Respiratory 18 Rate Blood Pressure 134/84 O2 Sat by Pulse 99 Oximetry ED Medical Decision Making - Radiology Data Radiology results: report reviewed, image reviewed Findings Reporting MD: Lobito Elizondo Dictation Time: February 23, 2020 20:18 Product Development Director: Not available Gear Finisher Date: XR spine lumbosacral 2-3V INDICATION / CLINICAL INFORMATION: back pain. COMPARISON: None available. FINDINGS: BONES/JOINT(S): No acute fracture or subluxation. No significant degenerative changes. Slight left convex scoliosis with the apex at the L2-3 level. SOFT TISSUES: No significant abnormality. ADDITIONAL FINDINGS: None. Signer Name: Lobito Elizondo MD Signed: 02/23/2020 8:18 PM Workstation Name: [id number] - Medical Decision Making Pain improved with medications given in ED x-rays negative for fracture mild scoliosis lumbar. Plan NSAIDs, muscle relaxants, analgesic balm ,moist heat therapy, follow-up with primary care in 2 to 3 days. Pt verbalized agreement and understanding of discharge. Critical care attestation.: If time is entered above; I have spent that time in minutes in the direct care of this critically ill patient, excluding procedure time. ED Disposition Clinical Impression: Low back strain Qualifiers: Encounter type: initial encounter Qualified Code(s): S39.012A - Strain of muscle, fascia and tendon of lower back, initial encounter Disposition: TO HOME OR SELFCARE Is pt being admited?: No Does the pt Need Aspirin: No Condition: Stable Instructions: Low Back Strain (ED), Core Strengthening Exercises (GEN) Prescriptions: Cyclobenzaprine [Flexeril] 10 mg PO BID PRN #20 tablet PRN Reason: Muscle Spasm Naproxen 500 mg PO BID PRN #30 tablet PRN Reason: pain Methyl Salicylate/Menthol [[place] Active 16%-8% Gel] 1 applicatio TP TID PRN #1 tube PRN Reason: pain Referrals: RODRIGO TAYLOR MD [Staff Physician] - 3-5 Days Forms: Work/School Release Form(ED) Time of Disposition: 21:42
--- NOTE | 2020-02-23 21:22 | XRay Report ---
XR spine lumbosacral 2-3V INDICATION / CLINICAL INFORMATION: back pain. COMPARISON: None available. FINDINGS: BONES/JOINT(S): No acute fracture or subluxation. No significant degenerative changes. Slight left co nvex scoliosis with the apex at the L2-3 level. SOFT TISSUES: No significant abnormality. ADDITIONAL FINDINGS: None. Signer Name: Lobito Elizondo MD Signed: 02/23/2020 9:18 PM Workstation Name: [id number]
== END 2020-02-23 21:48 | disposition home or self-care (01) ==
LOC: ED 18:37
DX: S39.012A Strain of muscle, fascia and tendon of lower back, initial encounter (principal); J45.909 Unspecified asthma, uncomplicated; Z90.49 Acquired absence of other specified parts of digestive tract; Z98.890 Other specified postprocedural states; Z79.899 Other long term (current) drug therapy; X58.XXXA Exposure to other specified factors, initial encounter; Y93.89 Activity, other specified; Y92.89 Other specified places as the place of occurrence of the external cause; Y99.8 Other external cause status
CPT/HCPCS: 72100; 81001; 81025

== ENCOUNTER 2020-11-07 19:39 | Emergency (ER) | payer MEDICAID ==
--- NOTE | 2020-11-07 20:43 | Emergency Department Report ---
ED General Adult HPI - General Stated complaint: BACK PAIN/HEADACHE/RT EARACHE Time Seen by Provider: 11/07/20 20:38 - History of Present Illness Initial comments: Is a pleasant 39-year-old female presents the emergency department with a chief complaint of right ear pain, lower back pain, and headache over the past week. She states she got a COVID-19 test outpatient and it was negative. She does report she had exposure to COVID-19. She otherwise denies any associated fever, chills, night sweats, dizziness, blurry vision, nausea,, diarrhea, weakness or any other associated symptoms. She denies any current medication use. She does take Depo-Provera injections every 3 months for control. - Related Data Previous Rx's Medication Instructions Recorded Last Taken Type Omeprazole 40 mg PO DAILY #30 capsule. 09/15/19 Unknown Rx Cyclobenzaprine [Flexeril] 10 mg PO BID PRN #20 tablet 02/23/20 Unknown Rx Methyl Salicylate/Menthol [[place] 1 applicatio TP TID PRN #1 tube 02/23/20 Unknown Rx [place] Active 16%-8% Gel] Naproxen 500 mg PO BID PRN #30 tablet 02/23/20 Unknown Rx Amoxicillin/Potassium Clav 1 each PO BID #20 tablet 11/07/20 Unknown Rx [Augmentin 875-125 Tablet] Naproxen [Naprosyn] 500 mg PO BID #20 tablet 11/07/20 Unknown Rx Allergies Allergy/AdvReac Type Severity Reaction Status Date / Time No Known Allergies Allergy Verified 02/23/20 18:46 ED Review of Systems ROS: Stated complaint: BACK PAIN/HEADACHE/RT EARACHE Other details as noted in HPI Comment: All other systems reviewed and negative Constitutional: denies: chills, fever Eyes: denies: eye pain, eye discharge, vision change ENT: as per HPI, ear pain. denies: throat pain Respiratory: denies: cough, shortness of breath, wheezing Cardiovascular: denies: chest pain, palpitations Endocrine: no symptoms reported Gastrointestinal: denies: abdominal pain, nausea, diarrhea Genitourinary: denies: urgency, dysuria, discharge Musculoskeletal: denies: back pain, joint swelling, arthralgia Skin: denies: rash, lesions Neurological: as per HPI, headache. denies: weakness, paresthesias Psychiatric: denies: anxiety, depression Hematological/Lymphatic: denies: easy bleeding, easy bruising ED Past Medical Hx - Past Medical History Hx Hypertension: No Hx Congestive Heart Failure: No Hx Diabetes: Yes (GDM) Hx Deep Vein Thrombosis: No Hx Renal Disease: No Hx Sickle Cell Disease: No Hx Seizures: No Hx Asthma: Yes (uses albuterol inhaler) Hx COPD: No Hx HIV: No - Surgical History Hx Appendectomy: Yes Additional Surgical History: Surgery, tib/fib fx - Social History Smoking Status: Never Smoker Substance Use Type: None - Medications Home Medications: Home Medications Medication Instructions Recorded Confirmed Last Taken Type Omeprazole 40 mg PO DAILY #30 capsule. 09/15/19 Unknown Rx Cyclobenzaprine [Flexeril] 10 mg PO BID PRN #20 tablet 02/23/20 Unknown Rx Methyl Salicylate/Menthol [[place] 1 applicatio TP TID PRN #1 tube 02/23/20 Unknown Rx [place] Active 16%-8% Gel] Naproxen 500 mg PO BID PRN #30 tablet 02/23/20 Unknown Rx Amoxicillin/Potassium Clav 1 each PO BID #20 tablet 11/07/20 Unknown Rx [Augmentin 875-125 Tablet] Naproxen [Naprosyn] 500 mg PO BID #20 tablet 11/07/20 Unknown Rx ED Physical Exam - General General appearance: alert, in no apparent distress - Head Head exam: Present: atraumatic, normocephalic - Eye Eye exam: Present: normal appearance, PERRL, EOMI Pupils: Present: normal accommodation - ENT ENT exam: Present: normal exam, normal orophraynx, mucous membranes moist. Absent: TM's normal bilaterally (Erythema and bulging to the right TM with a serous middle ear effusion.) - Neck Neck exam: Present: normal inspection. Absent: tenderness, meningismus - Respiratory Respiratory exam: Present: normal lung sounds bilaterally. Absent: respiratory distress, wheezes, rales, rhonchi, stridor - Cardiovascular Cardiovascular Exam: Present: regular rate, normal rhythm, normal heart sounds. Absent: systolic murmur, diastolic murmur, rubs, gallop - GI/Abdominal GI/Abdominal exam: Present: soft, normal bowel sounds. Absent: distended, tenderness, guarding, rebound, rigid - Extremities Exam Extremities exam: Present: normal inspection, full ROM, normal capillary refill. Absent: tenderness, calf tenderness (Negative Homans' sign bilaterally) - Back Exam Back exam: Present: normal inspection, full ROM, tenderness, paraspinal tenderness (Mild paraspinal tenderness to lumbar area with no midline tenderness to the cervical, thoracic or lumbar spine), other (Full active range of motion to full flexion extension. Normal gait without ataxia). Absent: CVA tenderness (R), CVA tenderness (L), vertebral tenderness - Neurological Exam Neurological exam: Present: alert, oriented X3, CN II-XII intact, normal gait, reflexes normal. Absent: motor sensory deficit - Psychiatric Psychiatric exam: Present: normal affect, normal mood - Skin Skin exam: Present: warm, dry, intact, normal color. Absent: rash ED Medical Decision Making - Medical Decision Making Patient nontoxic no acute distress. Vital signs are stable. Exam is consistent with an acute otitis media of the right ear. Patient's headache was gradual in onset and no thunderclap onset making a subarachnoid hemorrhage unlikely. Her neurologic exam was unremarkable. She had no history of metastatic disease making metastatic lesion unlikely. She had no injury making intracranial hematoma or hemorrhage unlikely. No temporal tenderness or vision changes m aking temporal arteritis less likely. She had no saddle anesthesia, urinary or bowel incontinence, urinary retention or significant injury making cauda equina, conus medullary syndrome or epidural hematoma less likely. Recommended outpatient follow-up with orthopedics, follow-up with primary care doctor and will treat her with antibiotics, anti-inflammatories and here for a work note. She was instructed to return to the emergency department immediately if she develops any change or worsening symptoms. She verbalized understanding of the diagnosis, treatment plan and follow-up instructions and all of her questions were answered. - Differential Diagnosis Otitis media, strain, sprain, viral syndrome Critical care attestation.: If time is entered above; I have spent that time in minutes in the direct care of this critically ill patient, excluding procedure time. ED Disposition Clinical Impression: Lumbosacral strain Qualifiers: Encounter type: initial encounter Qualified Code(s): S39.012A - Strain of muscle, fascia and tendon of lower back, initial encounter Acute otitis media Qualifiers: Otitis media type: suppurative Laterality: right Recurrence: non-recurrent Spontaneous tympanic membrane rupture: without spontaneous rupture Qualified Code(s): H66.001 - Acute suppurative otitis media without spontaneous rupture of ear drum, right ear Disposition: DC- TO HOME OR SELFCARE Is pt being admited?: No Condition: Stable Instructions: Otitis Media, Adult, [id number] Prescriptions: Amoxicillin/Potassium Clav [Augmentin 875-125 Tablet] 1 each PO BID #20 tablet Naproxen [Naprosyn] 500 mg PO BID #20 tablet Referrals: [facility] [Provider Group] - 3-5 Days Forms: Work/School Release Form(ED) Time of Disposition: 20:42
[2020-11-07 20:44] VITALS: BP 106/62
== END 2020-11-07 20:50 | disposition home or self-care (01) ==
LOC: ED 19:39
DX: S39.012A Strain of muscle, fascia and tendon of lower back, initial encounter (principal); H66.90 Otitis media, unspecified, unspecified ear; E11.9 Type 2 diabetes mellitus without complications; J45.909 Unspecified asthma, uncomplicated; Z90.49 Acquired absence of other specified parts of digestive tract; Z98.890 Other specified postprocedural states; Z79.2 Long term (current) use of antibiotics; Z79.899 Other long term (current) drug therapy; X58.XXXA Exposure to other specified factors, initial encounter; Y93.89 Activity, other specified; Y92.89 Other specified places as the place of occurrence of the external cause; Y99.8 Other external cause status
CPT/HCPCS: 99281

== ENCOUNTER 2020-12-01 11:55 | Emergency (ER) | payer MEDICAID ==
[2020-12-01 12:20] VITALS: BP 134/75
--- NOTE | 2020-12-01 12:42 | Emergency Department Report ---
ED Back Pain/Injury HPI - General Chief Complaint: Back Pain/Injury Stated Complaint: BILATERAL BACK PAIN Time Seen by Provider: 12/01/20 12:27 Source: patient Limitations: No Limitations - History of Present Illness Initial Comments: 40-year-old female presents to the ER today with complaints of lower back pain. Patient states that her pain started 5 days ago. She describes as an achy pain which has been intermittent in nature and nonradiating. She reports associated decreased urine output, urinary frequency and urgency. She denies any associated dysuria, lower abdominal pain, hematuria or any abnormal vaginal symptoms. She denies any injury or strenuous activity. She denies any lower extremity numbness, tingling or weakness. She denies any saddle anesthesia. Sh e denies any bowel or bladder incontinence. He states that her last menstrual cycle was October 10. She is concerned for possible but has not taken a home test at home. She states that she took Tylenol but it has not relieved her pain. She denies any history of back issues in the past. MD Complaint: back pain -: Gradual, days(s) (5) - Related Data Previous Rx's Medication Instructions Recorded Last Taken Type Cyclobenzaprine [Flexeril] 10 mg PO BID PRN #20 tablet 02/23/20 Unknown Rx Methyl Salicylate/Menthol [[place] 1 applicatio TP TID PRN #1 tube 02/23/20 Unknown Rx [place] Active 16%-8% Gel] Amoxicillin/Potassium Clav 1 each PO BID #20 tablet 11/07/20 Unknown Rx [Augmentin 875-125 Tablet] Ibuprofen [Motrin] 800 mg PO Q8HR PRN #30 tablet 12/01/20 Unknown Rx methOCARBAMOL [Robaxin TAB] 750 mg PO Q8H PRN #30 tablet 12/01/20 Unknown Rx Allergies Allergy/AdvReac Type Severity Reaction Status Date / Time No Known Allergies Allergy Verified 12/01/20 12:14 ED Review of Systems ROS: Stated complaint: BILATERAL BACK PAIN Other details as noted in HPI Comment: All other systems reviewed and negative Constitutional: denies: chills, fever Eyes: denies: eye pain, eye discharge, vision change ENT: denies: ear pain, throat pain Respiratory: denies: cough, shortness of breath, wheezing Endocrine: no symptoms reported Gastrointestinal: denies: abdominal pain, nausea, diarrhea Genitourinary: urgency, frequency. denies: hematuria, discharge, abnormal menses, dyspareunia Musculoskeletal: back pain Skin: denies: rash, lesions Neurological: denies: headache, weakness, paresthesias Psychiatric: denies: anxiety, depression ED Past Medical Hx - Past Medical History Hx Hypertension: No Hx Congestive Heart Failure: No Hx Diabetes: Yes (GDM) Hx Deep Vein Thrombosis: No Hx Renal Disease: No Hx Sickle Cell Disease: No Hx Seizures: No Hx Asthma: Yes (uses albuterol inhaler) Hx COPD: No Hx HIV: No - Surgical History Hx Appendectomy: Yes Additional Surgical History: Surgery, tib/fib fx - Social History Smoking Status: Never Smoker Substance Use Type: Alcohol - Medications Home Medications: Home Medications Medication Instructions Recorded Confirmed Last Taken Type Cyclobenzaprine [Flexeril] 10 mg PO BID PRN #20 tablet 02/23/20 Unknown Rx Methyl Salicylate/Menthol [[place] 1 applicatio TP TID PRN #1 tube 02/23/20 Unknown Rx [place] Active 16%-8% Gel] Amoxicillin/Potassium Clav 1 each PO BID #20 tablet 11/07/20 Unknown Rx [Augmentin 875-125 Tablet] Ibuprofen [Motrin] 800 mg PO Q8HR PRN #30 tablet 12/01/20 Unknown Rx methOCARBAMOL [Robaxin TAB] 750 mg PO Q8H PRN #30 tablet 12/01/20 Unknown Rx ED Physical Exam - General Limitations: No Limitations General appearance: alert, in no apparent distress - Head Head exam: Present: atraumatic, normocephalic, normal inspection - ENT ENT exam: Present: normal exam, mucous membranes moist - Neck Neck exam: Present: normal inspection - Respiratory Respiratory exam: Present: normal lung sounds bilaterally - Cardiovascular Cardiovascular Exam: Present: regular rate, normal rhythm, normal heart sounds - GI/Abdominal GI/Abdominal exam: Present: soft. Absent: distended, tenderness - Back Exam Back exam: Present: normal inspection, full ROM, CVA tenderness (R) (mild ), muscle spasm (Mild right upper ), paraspinal tenderness (Mild right upper ) - Neurological Exam Neurological exam: Present: alert, oriented X3, CN II-XII intact, normal gait - Psychiatric Psychiatric exam: Present: normal affect, normal mood - Skin Skin exam: Present: intact ED Course Vital Signs 12/01/20 12:14 Temperature 97.9 F Pulse Rate 90 Blood Pressure 134/75 O2 Sat by Pulse 100 Oximetry ED Medical Decision Making - Medical Decision Making The patient presented with acute back pain. The patient is now resting comfortably and , is alert, talkative, interactive and in no distress. The patient is neurologically intact and is ambulatory in the ED. the patient has no fever, no bowel or bladder incontinence, no saddle anesthesia and is otherwise alert and well-appearing. UA negative for UTI. Patient history, physical examination and diagnostic testing does not suggest the presence of acute spinal epidural abscess, acute epidural bleed, cauda equina syndrome, abdominal/thoracic aortic aneurysm, aortic dissection or other acute process requiring further testing, treatment or consultation in the emergency department. The vital signs have been stable. The patient condition is stable and appropriate for discharge. The patient will pursue further outpatient evaluation with the primary care physician. Critical care attestation.: If time is entered above; I have spent that time in minutes in the direct care of this critically ill patient, excluding procedure time. ED Disposition Clinical Impression: Lumbar pain Disposition: DC-01 TO HOME OR SELFCARE Is pt being admited?: No Does the pt Need Aspirin: No Condition: Stable Instructions: Acute Back Pain, Adult Additional Instructions: Take the Motrin and the much relaxer as prescribed. Follow-up closely with the primary care doctor listed on your discharge instructions if your symptoms continue. Return to the ER if your symptoms worsens or changes in any way. Prescriptions: Ibuprofen [Motrin] 800 mg PO Q8HR PRN #30 tablet PRN Reason: PAIN methOCARBAMOL [Robaxin TAB] 750 mg PO Q8H PRN #30 tablet PRN Reason: pain Referrals: WADE YOON NP-C [Primary Care Provider] - 3-5 Days Forms: Work/School Release Form(ED) Time of Disposition: 14:27
[2020-12-01 13:55] LABS: Bilirubin,Urine NEG (Negative); Blood,Urine SM (Negative); Calcium Oxalate Crystals,Urine 2+; Color,Urine Yellow (Yellow); Mucus,Urine FEW /HPF; Protein,Urine <15 mg/dL mg/dL (Negative)
[2020-12-01 14:24] LABS: HCG Qualitative,Urine Negative (Negative)
== END 2020-12-01 14:45 | disposition home or self-care (01) ==
LOC: ED 11:55
DX: M54.5 Low back pain (principal); E11.9 Type 2 diabetes mellitus without complications; J45.909 Unspecified asthma, uncomplicated; Z90.49 Acquired absence of other specified parts of digestive tract; Z98.890 Other specified postprocedural states; Z79.1 Long term (current) use of non-steroidal anti-inflammatories (NSAID); Z79.2 Long term (current) use of antibiotics; Z79.899 Other long term (current) drug therapy
CPT/HCPCS: 81001; 81025

== ENCOUNTER 2021-02-05 16:08 | Emergency (ER) | payer MEDICAID ==
--- NOTE | 2021-02-05 20:16 | Event Note ---
ED Screening Note Date of service: 02/05/21 Time: 20:14 ED Screening Note: 40-year-old female patient presents emergency department complaints of nontraumatic left breast pain and swelling. She is not currently breast- feeding. She has not recently given . She has never undergone a mammog jacinto. Unable to properly visualize affected area in triage; focused physical examination deferred to additional ED providers. General: Awake, appropriately interactive, no acute distress. Neck: Supple. Full range of motion intact. Cardiovascular: Normal peripheral perfusion. Pulmonary: No respiratory distress. Patient is speaking normally without use of accessory muscles. Neurological: No facial asymmetry. Speech is clear. Follows commands. Patient is alert and oriented. Musculoskeletal: Moves all four extremities spontaneously with normal range of motion. Psych: Cooperative. Appropriate mood and affect. I have greeted and performed a focused rapid initial assessment of this patient. A comprehensive ED assessment and evaluation of the patient, analysis of all test results, and completion of the medical decision-making process will be conducted by additional ED providers. This initial assessment/diagnostic orders/clinical plan/treatment(s) is/are subject to change based on patients health status, clinical progression and re-assessment. Further treatment and workup at subsequent clinical provider's discretion. Patient/guardian urged not to elope from the ED as their condition may be serious if not clinically assessed and managed.
[2021-02-05 20:35] VITALS: BP 143/90
[2021-02-05] MEDS ORDERED: HYDROcodone/ACETAMINOPHEN 5-325 MG TAB PO ONE (20:44)
--- NOTE | 2021-02-05 21:02 | Emergency Department Report ---
ED General Adult HPI - General Chief complaint: Urogenital-Female Stated complaint: LEFT BREAST PAIN Time Seen by Provider: 02/05/21 20:35 Source: EMS Mode of arrival: Ambulatory Limitations: No Limitations - History of Present Illness Initial comments: Patient is a 40-year-old female presents emergency room with complaints of left sided breast pain that 3 days ago. She states that she went to her primary care doctor today and was advised to be evaluated emergency primary and secondary to her pain, she states that she has a mammogram scheduled for Thursday02/08/2021. She states that she has never had a mammogram. She states that she does not have a [employer] INS[employer] MECH[employer]IC that she sees that her primary care doctor usually handles her yearly female visits. She denies any chest pain or shortness of breath. She denies any breast swelling, fever, redness, nipple drainage, nipple bleeding. Past medical history of asthma. no allergies to meds. - Related Data Previous Rx's Medication Instructions Recorded Last Taken Type Cyclobenzaprine [Flexeril] 10 mg PO BID PRN #20 tablet 02/23/20 Unknown Rx Methyl Salicylate/Menthol [[place] 1 applicatio TP TID PRN #1 tube 02/23/20 Unknown Rx [place] Active 16%-8% Gel] Amoxicillin/Potassium Clav 1 each PO BID #20 tablet 11/07/20 Unknown Rx [Augmentin 875-125 Tablet] Ibuprofen [Motrin] 800 mg PO Q8HR PRN #30 tablet 12/01/20 Unknown Rx methOCARBAMOL [Robaxin TAB] 750 mg PO Q8H PRN #30 tablet 12/01/20 Unknown Rx Naproxen [EC-Naprosyn] 500 mg PO BID PRN #14 tablet.dr 02/05/21 Unknown Rx traMADoL [Ultram 50 MG tab] 50 mg PO Q6HR PRN #7 tablet 02/05/21 Unknown Rx Allergies Allergy/AdvReac Type Severity Reaction Status Date / Time No Known Allergies Allergy Verified 12/01/20 12:14 ED Review of Systems ROS: Stated complaint: LEFT BREAST PAIN Other details as noted in HPI Comment: All other systems reviewed and negative ED Past Medical Hx - Past Medical History Previous Medical History?: Yes Hx Hypertension: No Hx Congestive Heart Failure: No Hx Diabetes: Yes (GDM) Hx Deep Vein Thrombosis: No Hx Renal Disease: No Hx Sickle Cell Disease: No Hx Seizures: No Hx Asthma: Yes (uses albuterol inhaler) Hx COPD: No Hx HIV: No - Surgical History Hx Appendectomy: Yes Additional Surgical History: Surgery, tib/fib fx - Social History Smoking Status: Never Smoker Substance Use Type: Alcohol - Medications Home Medications: Home Medications Medication Instructions Recorded Confirmed Last Taken Type Cyclobenzaprine [Flexeril] 10 mg PO BID PRN #20 tablet 02/23/20 Unknown Rx Methyl Salicylate/Menthol [[place] 1 applicatio TP TID PRN #1 tube 02/23/20 Unknown Rx [place] Active 16%-8% Gel] Amoxicillin/Potassium Clav 1 each PO BID #20 tablet 11/07/20 Unknown Rx [Augmentin 875-125 Tablet] Ibuprofen [Motrin] 800 mg PO Q8HR PRN #30 tablet 12/01/20 Unknown Rx methOCARBAMOL [Robaxin TAB] 750 mg PO Q8H PRN #30 tablet 12/01/20 Unknown Rx Naproxen [EC-Naprosyn] 500 mg PO BID PRN #14 tablet.dr 02/05/21 Unknown Rx traMADoL [Ultram 50 MG tab] 50 mg PO Q6HR PRN #7 tablet 02/05/21 Unknown Rx ED Physical Exam - General Limitations: No Limitations General appearance: alert, in no apparent distress - Head Head exam: Present: atraumatic, normocephalic - Eye Eye exam: Present: normal appearance - ENT ENT exam: Present: mucous membranes moist - Respiratory Respiratory exam: Present: normal lung sounds bilaterally. Absent: respiratory distress, wheezes, rales, rhonchi, stridor, accessory muscle use, decreased breath sounds, prolonged expiratory - Cardiovascular Cardiovascular Exam: Present: regular rate, normal rhythm, normal heart sounds. 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 She states that she went to her primary care doctor today and was advised to be evaluated emergency primary and secondary to her pain, she states that she has a mammogram scheduled for Thursday02/08/2021. She states that she has never had a mammogram. She states that she does not have a [employer] INS[employer] MECHANIC that she sees that her primary care doctor usually handles her yearly female visits. She denies any chest pain or shortness of breath. She denies any breast swelling, fever, redness, nipple drainage, nipple bleeding. Past medical history of asthma. no allergies to meds. Vitals are stable. On exam: ttp to the left breast, multiple cystic nodules palpable, no discrete mass, no erythema, no increased warmth, no nipple drainage, no nipple bleeding or retraction, no peau d'orange, coal picker:emely deleon. No clinical signs of mastitis or breast abscess. No clinical signs of inflammatory breast cancer at this time. She has upcoming appointment for mammogram. Symptoms could be related to fibrocystic breast, discussed the importance of follow-up and discuss strict return precautions. Patient given prescription for pain medication. Advised patient Please take medication as prescribed as needed. Please avoid caffeine use. Please begin taking fish oil pills [id number]. Please keep your appointment for your mammogram. Follow-up with your primary care doctor. Follow-up with [employer]. Return to emergency room for new or worsening symptoms. Critical care attestation.: If time is entered above; I have spent that time in minutes in the direct care of this critically ill patient, excluding procedure time. ED Disposition Clinical Impression: Breast pain Disposition: DC-01 TO HOME OR SELFCARE Is pt being admited?: No Does the pt Need Aspirin: No Condition: Stable Instructions: Fibrocystic Breast Changes, Breast Tenderness Additional Instructions: Please take medication as prescribed as needed. Please avoid caffeine use. Please begin taking fish oil pills [id number]. Please keep your appointment for your mammogram. Follow-up with your primary care doctor. Follow-up with [employer]. Return to emergency room for new or worsening symptoms. Prescriptions: Naproxen [EC-Naprosyn] 500 mg PO BID PRN #14 tablet.dr PRN Reason: pain traMADoL [Ultram 50 MG tab] 50 mg PO Q6HR PRN #7 tablet PRN Reason: Pain , Severe (7-10) Referrals: your, primary care doctor [Other] - 2-3 Days HARSHAL MEADE JR, MD [Staff Physician] - 2-3 Days Time of Disposition: 21:03 Print Language: YAKUT
== END 2021-02-05 21:25 | disposition home or self-care (01) ==
LOC: ED 16:08
DX: N64.4 Mastodynia (principal); E11.9 Type 2 diabetes mellitus without complications; J45.909 Unspecified asthma, uncomplicated; Z90.49 Acquired absence of other specified parts of digestive tract; Z98.890 Other specified postprocedural states; Z79.1 Long term (current) use of non-steroidal anti-inflammatories (NSAID); Z79.2 Long term (current) use of antibiotics; Z79.899 Other long term (current) drug therapy

== ENCOUNTER 2021-04-22 23:10 | Emergency (ER) | payer MEDICAID | END 2021-04-23 03:30 | disposition left against medical advice (07) | LOC: ED 23:10 | DX: M79.89 Other specified soft tissue disorders (principal); Z53.21 Procedure and treatment not carried out due to patient leaving prior to being seen by health care provider ==

== ENCOUNTER → 2022-02-15 | Emergency (ER) | payer MEDICAID ==
[2022-02-16] VITALS: BP 148/77
== END ==
LOC: ED 23:51
DX: J45.909 Unspecified asthma, uncomplicated (principal); Z53.21 Procedure and treatment not carried out due to patient leaving prior to being seen by health care provider